=== PATIENT | male | born 2000 ===

== ENCOUNTER 2025-02-07 11:57 | Outpatient (AMB) | payer BC, SELFPAY ==
--- NOTE | 2025-02-07 12:04 | MHC.OFFWIV ---
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 History - The patient is a 24 year old male presenting with acute chest pain. - The onset of the pain was at 11:00 AM on the day of the visit and appears every time the patient breathes. - The patient reports additional symptoms such as cough and congestion. - Denies fever, shortness of breath, or wheezing. - His medical history notes potential asthma during childhood, as per his mother, though the patient is uncertain of his current status. - The patient acknowledges past vaping use but notes that this ceased some time ago. - He has only taken Tylenol for pain relief, without recourse to any other medications or treatments. Physical Exam General: Cooperative, healthy appearing, comfortable and no acute distress Orientation/consciousness: Patient oriented x3 Limitations: No limitations Head: Normal to inspection Ears: Hearing grossly normal bilaterally, external ears normal and TM's normal bilaterally Nose: Normal external nose present, Normal nares present and No nasal discharge present Face and sinus: Normal facial exam and Yes sinuses nontender Mouth: Normal oral and palatal mucosa present and moist mucous membranes Throat: Yes tonsils normal, Yes uvula midline. Posterior oropharynx erythema Eyes: Appearance normal, both eyes and all related structures Neck: Normal visual inspection Respiratory: Clear to auscultation bilaterally. Normal respiratory effort, able to speak in complete sentences, no respiratory distress, not tachypneic, no tripod positioning and no use of accessory muscles Cardiovascular: Regular rate and rhythm. Normal S1 and S2 Skin: No rashes or lesions noted Neuro: Patient oriented x3 Extremities: Normal to inspection and Yes no clubbing, cyanosis or edema PFSH Social History Patient Tobacco Use Status: Never used Tobacco Review of Systems Const All systems reviewed & are unremarkable except as noted in HPI and below Physical Exam Vital Signs: Last Vital Signs Pulse 76 02/07/25 12:07 BP 130/80 02/07/25 12:07 Pulse Ox 98 02/07/25 12:07 Oxygen Delivery Method Room Air 02/07/25 12:07 BMI result Body Mass Index 25.8 Assessment & Plan Assessment & Plan (1) Lower respiratory infection (e.g., bronchitis, pneumonia, pneumonitis, pulmonitis): Code(s): J22 - Unspecified acute lower respiratory infection Plan: VSS, pt well appearing and PE unremarkable. For the patient's acute chest pain with an asthma history, diagnostic steps include performing a chest X-ray to rule out pneumonia, given the sudden onset of symptoms. The patient's clear lung sounds and optimal oxygen levels provide reassurance. However, the diagnostic work-up includes testing for flu, COVID, and RSV, with results anticipated by the next day. Symptom management with Mucinex is advised for reducing congestion, alongside general recommendations for rest and hydration. A work note is provided to account for absence due to these symptoms. Patient was informed and verbally consented to the use of an ambient scribe for clinic note documentation during this visit Orders: Orders SARS-CoV2/FLU/RSV Today R09.89 - Other specified symptoms and signs involving the circulatory and respiratory systems XR chest 2V Today R05.9 - Cough, unspecified Coding Level of Care Code New Pt Level 4 (70439) Diagnoses Lower respiratory infection (e.g., bronchitis, pneumonia, pneumonitis, pulmonitis) J22
[2025-02-07 12:07] VITALS: BP 130/80; PULSE 76; O2SAT 98; BMI 25.8
== END 2025-02-07 13:14 | disposition home or self-care (01) ==
PROVIDERS: Visit Provider Physician Assistant
DX: J22 Unspecified acute lower respiratory infection (principal)

== ENCOUNTER 2025-02-07 11:57 | Outpatient (REF) | payer BC, SELFPAY ==
--- NOTE | ~2025-02-07 | XR_ITS ---
EXAMINATION: XR CHEST 2 VIEWS HISTORY: R05.9 - Cough, unspecified COMPARISON: There are no prior studies for comparison. FINDINGS: PA and lateral views of the chest are submitted. The lungs are expanded and clear. There is no pleural effusion, pneumothorax, or pulmonary vascular congestion. The heart is normal in size. The bones are intact. XR/XR chest 2V IMPRESSION: Normal examination of the chest. Electronically signed by: Sushant Toscano MD 02/07/2025 01:30 PM EDT
[2025-02-07 17:34] LABS: Influenza A PCR NEGATIVE (Negative); Influenza B PCR NEGATIVE (Negative); Resp Syncy Virus RNA Qual PCR NEGATIVE (Negative); SARS COV2 PCR INHOUSE NEGATIVE (Negative)
== END 2025-02-07 11:58 | disposition home or self-care (01) ==
LOC: HO.LAB 11:57
PROVIDERS: Visit Provider Physician Assistant
DX: J22 Unspecified acute lower respiratory infection (principal); R05.9 Cough, unspecified; R09.89 Other specified symptoms and signs involving the circulatory and respiratory systems
CPT/HCPCS: 0241U; 71046

== ENCOUNTER → 2025-02-07 13:14 | Outpatient (BNV) | payer BC, SELFPAY | PROVIDERS: Visit Provider Radiology Diagnostic Radiology | DX: R05.9 Cough, unspecified (principal) | CPT/HCPCS: 71046 ==

== ENCOUNTER 2025-06-17 10:28 | Outpatient (AMB) | payer BC, SELFPAY ==
[2025-06-17 10:38] VITALS: BP 102/60; PULSE 80; TEMP 36.6; O2SAT 97; BMI 25.8
--- NOTE | 2025-06-17 10:38 | AM.OFFWIN_ITS ---
Intake Vital Signs 06/17/25 10:38 Height 5 ft 7 in Weight 165 lb BMI 25.8 BP 102/60 Blood Pressure Location Lt brachial Position Sitting Pulse 80 Pulse Source Pulse Oximeter Temp 97.9 F Temp Source Oral Pulse Oximetry (%) 97 Oxygen Delivery Method Room Air Intake Visit Reasons: EP-tongue issue Intake Note: pt presents with white film with white spots on the sides of tongue- denies any pain/burning for about a month Patient Tobacco Use Status: Never used Tobacco Allergies No Known Allergies Allergy (Verified 06/17/25 10:46) Do you need a note to return to daycare/school/sports/work: Yes HPI HPI Comments History of Present Illness Details 24 y/o Male patient who presents to the walk in clinic with c/o White Patches on his Tongue. Reports seeing White Patches everytime he brushes his Teeth and Tongue. Denies any Loss of Taste. He does not take any Medications. No medical chronic issues. He saw his Dentist recently and he was Told to use a specific Mouth wash but does not remember the name of it. [facility] Medical History (Updated 06/17/25 @ 11:01 by Ruthie Cuba NP) White patches on oral mucosa Social History Patient Tobacco Use Status: Never used Tobacco Review of Systems Const All systems reviewed & are unremarkable except as noted in HPI and below Physical Exam Vital Signs: Last Vital Signs Temp 97.9 F 06/17/25 10:38 Pulse 80 06/17/25 10:38 BP 102/60 06/17/25 10:38 Pulse Ox 97 06/17/25 10:38 Oxygen Delivery Method Room Air 06/17/25 10:38 BMI result Body Mass Index 25.8 Const General: comfortable and no acute distress Nutritional Appearance: well nourished HEENT Mouth: Normal oral and palatal mucosa present, tongue normal and moist mucous membranes Throat: Yes uvula midline Assessment & Plan Assessment & Plan (1) White patches on oral mucosa: Code(s): K13.29 - Other disturbances of oral epithelium, including tongue Plan: Tongue normal color and texture. No blisters or white patches. Advised to f/u with Dentist for the name of Mouth wash. Coding Level of Care Code Est Pt Level 4 (39996) Diagnoses White patches on oral mucosa K13.29 Time Spent (min) 20
== END 2025-06-17 12:34 | disposition home or self-care (01) ==
PROVIDERS: Visit Provider Nurse Practitioner Family
DX: K13.29 Other disturbances of oral epithelium, including tongue (principal)